=== PATIENT | female | born 1960 | race American Indian/Alaskan Native ===

== ENCOUNTER 2020-11-02 07:16 | Day surgery (SDC) | payer BC ==
[2020-10-30 09:48] LABS: Hematocrit 38.7 % (30.3-42.9); Hemoglobin 12.9 gm/dl (10.1-14.3); Mean Corpuscular HGB Conc 33 % (30-34); Mean Corpuscular Volume 84 fl (79-97); Platelet Count 214 K/mm3 (140-440); Red Cell Distribution Width 14.4 % (13.2-15.2)
[2020-10-30 10:07] LABS: BUN/Creatinine Ratio 14; Blood Urea Nitrogen 11 mg/dL (7-17); Calcium 8.8 mg/dL (8.4-10.2); Hemolysis Index 9
[~2020-11-02 07:16] MED LIST: ACETAMINOPHEN 500 MG TAB PO SCH; GABAPENTIN 300 MG CAP PO NR; LACTATED RINGERS 1,000 ML IV SCH; MIDAZOLAM 2 MG/2 ML INJ IV NR; ceFAZolin/Water 2 GM/20 ML 2 GM/20 ML SYRINGE IV NR
[2020-11-02] MEDS ORDERED: ONDANSETRON 4 MG/2 ML INJ IV PRN (07:42)
[2020-11-02] MEDS ORDERED: HYDROmorphone 1 MG/1 ML INJ IV PRN (07:42)
--- NOTE | 2020-11-02 07:42 | Anesthesia Day of Surgery ---
Anesthesia Day of Surgery - Day of Surgery Patient Examined: Yes Patient H&P Reviewed: Yes Patient is NPO: Yes
--- NOTE | 2020-11-02 07:42 | Anesthesia Consultation ---
Anesthesia Consult and Med Hx Date of service: 11/02/20 - Airway Anesthetic Teeth Evaluation: Good ROM Head & Neck: Adequate Mental/Hyoid Distance: Adequate Mallampati Class: Class III Intubation Access Assessment: Possibly Difficult - Pulmonary Exam CTA: Yes - Cardiac Exam Cardiac Exam: RRR - Pre-Operative Health Status ASA Pre-Surgery Classification: ASA2 Proposed Anesthetic Plan: General - Pulmonary Hx Smoking: No Hx Respiratory Symptoms: No - Cardiovascular System Hx Hypertension: Yes Hx Heart Attack/AMI: No Hx Percutaneous Transluminal Coronary Angioplasty (PTCA): No - Central Nervous System CVA: No - Gastrointestinal Hx Gastroesophageal Reflux Disease: Yes - Endocrine Hx Renal Disease: No Hx Liver Disease: No Hx Non-Insulin Dependent Diabetes: Yes Hx Thyroid Disease: No - Other Systems Hx Obesity: Yes (BMI 32) - Additional Comments Anesthesia Medical History Comments: No hx anesthetic complications.
[2020-11-02] MEDS ORDERED: LIDOCAINE (1%) 10 MG/1 ML VIAL 20 ML MDV ONE ×2 (07:52→10:05)
[2020-11-02] MEDS ORDERED: BACTERIOSTATIC SODIUM CHLORIDE 0.9% 30 ML VIAL INFILTRATI ONE (08:27)
--- NOTE | 2020-11-02 09:20 | Mammography Report ---
MAMMOGRAPHIC GUIDED LEFT BREAST NEEDLE LOCALIZATION, 11/02/2020 CLINICAL INFORMATION / INDICATION: LT BREAST MASS. COMPARISON: 09/03/2020 PROCEDURE: Risks, benefits and indications to the procedure were discussed with the patient. The patient agreed to proceed with both verbal and written consent. A timeout procedure was performed with 2 patient lexy ntifiers. The breast was prepped with betadine in the usual sterile fashion. Approximately 5 cc of Lidocaine 1% was used for local anesthesia. Under direct digital mammographic guidance, a localization wire was p laced in satisfactory position with distal tip traversing the targeted lesion. Post-biopsy mammogram confirms satisfactory positioning of the localization wire. The wire was secured to the skin with a s terile dressing. The patient tolerated procedure without difficulty. No complications were encountered. IMPRESSION: 1. Satisfactory mammographic guided wire localization of the left breast lesion/clip. Signer Name: Geoff Christian Jr, MD Signed: 11/02/2020 9:15 AM Workstation Name: [id number]
[2020-11-02] MEDS ORDERED: LIDOCAINE MPF (2%) 20 MG/1 ML VIAL 5 ML ONE (09:24)
[2020-11-02] MEDS ORDERED: ONDANSETRON 4 MG/2 ML INJ ONE (09:24)
[2020-11-02] MEDS ORDERED: propofoL 200 MG/20 ML VIAL IV ONE (09:24)
[2020-11-02] MEDS ORDERED: KETAMINE/STERILE WATER 50 MG/ML SYRINGE ONE (09:24)
[2020-11-02] MEDS ORDERED: KETOROLAC 30 MG/1 ML INJ ONE (09:24)
[2020-11-02] MEDS ORDERED: dexAMETHasone 20 MG/5 ML VIAL ONE (09:24)
[2020-11-02] MEDS ORDERED: BUPIVACAINE/PF (0.25%) 2.5 MG/ML 30 ML VIAL INFILTRATI ONE ×2 (10:05→11:04)
[2020-11-02] MEDS ORDERED: MAGNESIUM SULFATE 2 GM/50 ML BAG IV ONE (10:07)
[2020-11-02] MEDS ORDERED: SODIUM CHLORIDE P/F VIAL 10 ML 20 ML ONE (10:24)
[2020-11-02] MEDS ORDERED: ePHEDrine SULFATE 50 MG/1 ML INJ ONE (10:29)
[2020-11-02] MEDS ORDERED: LIDOCAINE (1%) 10 MG/1 ML VIAL 20 ML MDV INFILTRATI ONE (11:04)
[2020-11-02] MEDS ORDERED: SODIUM CHLORIDE 0.9% IRR 1,500 ML BOTTLE IR ONE (11:05)
--- NOTE | 2020-11-02 11:33 | Short Stay Summary ---
Short Stay Documentation Date of service: 11/02/20 - History H&P: obtained from office - Allergies and Medications Current Medications: Allergies phenytoin [From Dilantin] Allergy (Verified 10/29/20 14:20) Rash sulfamethoxazole [From Bactrim] Allergy (Verified 10/29/20 14:20) Rash trimethoprim [From Bactrim] Allergy (Verified 10/29/20 14:20) Rash Home Medications Medication Instructions Recorded Confirmed Last Taken Type Lisinopril/Hydrochlorothiazide 1 tab PO QDAY 10/29/20 10/29/20 11/01/20 History [Zestoretic 20-12.5 mg] Metformin HCl [metFORMIN] 1,000 mg PO BID 10/29/20 10/29/20 11/01/20 History oxyCODONE /ACETAMINOPHEN [Percocet 1 tab PO Q6HR PRN #12 tablet 11/02/20 Unknown Rx 5/325] Active Medications Acetaminophen (Acetaminophen 500 Mg Tab) 1,000 mg PO PREOP EDDIE Stop: 11/02/20 23:59 Last Admin: 11/02/20 08:35 Dose: 1,000 mg Documented by: Gabapentin (Gabapentin 300 Mg Cap) 300 mg PO PREOP NR Stop: 11/02/20 23:59 Last Admin: 11/02/20 08:35 Dose: 300 mg Documented by: Hydromorphone HCl (Hydromorphone 1 Mg/1 Ml Inj) 0.5 mg IV Q10MIN PRN PRN Reason: Pain , Severe (7-10) Stop: 11/02/20 23:00 Cefazolin Sodium (Ancef/Sterile Water 2 Gm/20 Ml) 2 gm in 20 mls @ 80 mls/hr IV PREOP NR; Protocol Stop: 11/02/20 23:59 Lactated Ringer's (Lactated Ringers) 1,000 mls @ 100 mls/hr IV DIRECT EDDIE Stop: 11/02/20 23:59 Last Admin: 11/02/20 08:45 Dose: 100 mls/hr Documented by: Midazolam HCl (Midazolam 2 Mg/2 Ml Inj) 2 mg IV PREOP NR Stop: 11/02/20 23:59 Last Admin: 11/02/20 09:05 Dose: 2 mg Documented by: Ondansetron HCl (Ondansetron 4 Mg/2 Ml Inj) 4 mg IV ONCE PRN PRN Reason: Nausea And Vomiting Stop: 11/02/20 12:00 - Brief post op/procedure progress note Date of procedure: 11/02/20 Pre-op diagnosis: Left breast ADH UOQ Post-op diagnosis: same Procedure: Left needle localization excisional biopsy of the upper outer quadrant Anesthesia: GETA Findings: Left wire and clip present within radiograph specimen Surgeon: SOEL DAUGHERTY Estimated blood loss: minimal Pathology: list Specimen disposition: to lab Condition: stable - Disposition Condition at discharge: Good Disposition: DC-01 TO HOME OR SELFCARE Short Stay Discharge Plan Activity: other (no heavy lifting) Diet: regular Wound: keep clean and dry (may shower in 48 hours; no baths; wear breast binder) Follow up with: SOLE DAUGHERTY MD [Staff Physician] - 7 Days Prescriptions: oxyCODONE /ACETAMINOPHEN [Percocet 5/325] 1 tab PO Q6HR PRN #12 tablet PRN Reason: Pain
--- NOTE | 2020-11-02 11:38 | Operative Report ---
Operative Report Operative Report: Operative Report: Date: November 02, 2020 Preoperative diagnosis: Left breast ADH of the upper outer quadrant Postoperative diagnosis: Same Procedure: Left needle localization breast mass excisional biopsy of the upper outer quadrant Surgeon: Jennifer Ramos MD Picker And Packer: Anival Edmondson MD Anesthesia: General Findings: Left wire and clip present within radiograph specimen Complications: None EBL: Minimal (less than 25 cc) Disposition: PACU in good condition Indications for operative procedure: This is a 60 year old lady with recent abnormal screening and diagnostic mammogram with biopsy performed of suspicious microcalcifications with findings of ADH and flat epithelial atypia of the upper central breast. Recommendations are to proceed with left breast excisional biopsy to rule out malignancy. She wished to proceed with the above procedure. Procedure in detail: The patient was taken to radiology for wire placement for localization known area of atypia. Patient was then taken to the operating room. Gen. anesthesia was administered. Left breast and axilla were prepped and draped in the normal sterile operative fashion. The wire was identified around 1:00 position. Timeout was performed. Attention was then taken towards the left breast. A periareolar breast incision was made around the 12:00 position with a 15 blade knife and dissection taken down to subcutaneous tissues. First began raising of the superior flap with removal of the wire from the skin with dissection take down posteriorly past the wire and down posteriorly to the pectoralis muscle, followed by raising of the inferior flap, medial flap and lateral flap with all flaps taken down past the wire and posteriorly towards the pectoralis muscle. The breast area of concern was appropriately removed posteriorly with the aid of the Bovie cautery. The wire was not encountered. Specimen was marked and then sent to pathology and radiology; radiograph specimen with wire and clip present. Breast cavity was irrigated and hemostasis was obtained. The posterior deep breast tissues were approximated and closed using interrupted 3-0 Vicryl. The subcutaneous tissues were approximated and closed using interrupted 3-0 Vicryl followed by closing of the skin with a running 4-0 Monocryl and skin affix. The patient tolerated surgery very well and she was awaken from anesthesia without any complication and transported to PACU in good condition.
--- NOTE | 2020-11-02 12:38 | Mammography Report ---
LEFT BREAST SPECIMEN RADIOGRAPH, 11/02/2020 INDICATION: Left breast target lesion: Left breast mass. COMPARISON: FINDINGS: The previously localized left breast lesion containing a clip is present in its entirety in the submi tted specimen. The localization wire is present. IMPRESSION: 1. Radiographic evidence of satisfactory excision of the target lesion. Signer Name: Geoff Christian Jr, MD Signed: 11/02/2020 12:34 PM Workstation Name: [id number]
--- NOTE | 2020-11-02 13:16 | Post Anesthesia Evaluation ---
- Post Anesthesia Evaluation Patient Participated: Yes Airway Patent: Yes Stable Respiratory Function: Yes Nausea/Vomiting: No Temp > 96.8F: Yes Pain Manageable: Yes Adequeate Hydration: Yes Anesthesia Complications: No
[2020-11-02 16:45] VITALS: BP 120/68
== END 2020-11-02 07:17 | disposition home or self-care (01) ==
LOC: OR 07:16
PROVIDERS: ATTEND Surgery
DX: N63.21 Unspecified lump in the left breast, upper outer quadrant (principal); D24.2 Benign neoplasm of left breast; R92.0 Mammographic microcalcification found on diagnostic imaging of breast; N60.82 Other benign mammary dysplasias of left breast; Z20.822 Contact with and (suspected) exposure to COVID-19; N64.89 Other specified disorders of breast; G43.909 Migraine, unspecified, not intractable, without status migrainosus; I10 Essential (primary) hypertension; K21.9 Gastro-esophageal reflux disease without esophagitis; E66.9 Obesity, unspecified; E11.9 Type 2 diabetes mellitus without complications; D64.9 Anemia, unspecified; Z98.890 Other specified postprocedural states; Z88.8 Allergy status to other drugs, medicaments and biological substances; Z79.899 Other long term (current) drug therapy; Z79.84 Long term (current) use of oral hypoglycemic drugs; Z90.710 Acquired absence of both cervix and uterus; N62 Hypertrophy of breast
CPT/HCPCS: 19125; 19281; 36415; 76098; 80048; 82962; 85027; 88307; A4648; J0690; J1100; J1885; J2250; J2405; J2704; J3475; J3490; J7120; U0003

== ENCOUNTER 2020-12-04 08:24 | Outpatient (CLI) | payer BC ==
--- NOTE | 2020-12-05 08:45 | Magnetic Resonance Report ---
Bilateral breast MR without and with contrast. 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 Comparison: 11/02/2020, 09/03/2020, 07/30/2020. Technique: Multiplanar multisequence MR images of the breast were obtained before and after the intra venous administration of 16 mL of MultiHance contrast. Post processing analysis and review was perfor med on a separate computer workstation. Findings: Breast composition is heterogeneously dense. There is moderate background parenchymal enhancement wit hin both breasts which along with the presence of multiple enhancing foci decreases the sensitivity o f this exam. Additionally, there is significant patient motion on the last postcontrast sequence whic h also limits this exam. LEFT BREAST: Postsurgical changes following recent left superior breast surgical excision are noted. There is a small seroma (2.7 x 1.2 x 2.9 cm) located within the surgical site. Overlying skin thicken ing and enlarged left axillary lymph nodes are present, likely related to recent surgery. Low level e nhancement surrounding the surgical site is consistent with post surgical change. A few scattered enh ancing foci are present throughout the left breast, however these appear to demonstrate low level enh ancement kinetics. Otherwise, no discrete enhancing mass or dominant focus is identified within the l eft breast. RIGHT BREAST: Located within the right central and superior breast are a few scattered enhancing foci . The majority of these appear to demonstrate low level enhancement kinetics. However, there are at l east two which show some degree of type III enhancement kinetics. These include a 4 x 4 x 5 mm round lesion within the right breast at about the 10:00 position, 3 cm from the nipple. Additionally, there is a 7 x 3 x 4 mm oval enhancing lesion within the right breast at the 12:00 position, 3 cm from the nipple. No abnormal right axillary lymph nodes or internal mammary lymph nodes. Impression: There are two enhancing lesions within the right superior breast. These measure up to 7 mm and are lo cated within the right breast at the 10:00 position, 3 cm from the nipple, and 12:00 position, 3 cm f rom the nipple. These are in a background of multiple scattered enhancing foci. These findings are in determinate and a targeted ultrasound is recommended for further evaluation with subsequent ultrasoun d-guided biopsy if a sonographic correlate is identified. If no sonographic correlate is identified, an MRI guided biopsy would be recommended. Postsurgical changes within the left superior breast at site of recent surgical excision with expecte d postoperative changes including small seroma at the surgical site as well as skin thickening and le ft axillary lymph nodes, likely reactive from recent surgery. BIRADS 4: Suspicious abnormality. A normal MRI does not exclude the presence of some forms of breast malignancy as literature reports s uggest that some forms of ductal carcinoma in situ or lobular carcinoma, particularly, may not be det ected on MRI. The sensitivity and specificity of MRI for cancers under 5 mm may be reduced. MRI does not replace the recommendation for annual conventional mammographic evaluation and should be used as an adjunct to mammography and physical examination as necessary. Signer Name: Santos Rondon MD Signed: 12/05/2020 8:40 AM Workstation Name: [id number]
== END 2020-12-04 08:25 | disposition home or self-care (01) ==
LOC: SPVIMAG 08:24
PROVIDERS: ATTEND Surgery
DX: N60.82 Other benign mammary dysplasias of left breast (principal); N64.89 Other specified disorders of breast
CPT/HCPCS: A9575; C8908; 77049

== ENCOUNTER 2021-01-09 14:10 | Outpatient (CLI) | payer BC ==
--- NOTE | 2021-01-09 16:21 | Mammography Report ---
RIGHT DIGITAL DIAGNOSTIC MAMMOGRAM WITH CAD , 01/09/2021 RIGHT LIMITED BREAST ULTRASOUND CLINICAL INFORMATION / INDICATION: The patient has a history of atypical ductal hyperplasia in the le ft breast and has recently undergone surgical excision. Recent breast MRI demonstrated two foci of en hancement in the right breast at the 10 and 12:00 positions. This is a second look evaluation to iden tify a correlate for biopsy. TECHNIQUE: Digital right mammographic imaging was performed. Limited ultrasound was performed. This e xamination was interpreted with the benefit of Computer-Aided Detection (CAD) analysis. COMPARISON: Breast MRI, 12/04/2020. Screening mammogram, 07/30/2020 and 07/05/2019 FINDINGS: Breast Density: The breasts are heterogeneously dense, which may obscure small masses. MAMMOGRAPHIC FINDINGS: No dominant mass, suspicious calcifications, or architectural distortion in th e right breast. ULTRASOUND FINDINGS: Targeted ultrasound evaluation was performed of the area of interest. Sonograp hic evaluation of the superior and upper outer right breast demonstrates no sonographic correlate to the two foci of enhancement seen on the MRI. A 1.3 cm cyst is incidentally noted. IMPRESSION: 1. No mammographic or sonographic correlate is identified to correspond to the foci of enhancement se en on the breast MRI. Although they are low suspicion for malignancy, MRI guided biopsy of one of the se foci is recommended. Follow up recommendation: Biopsy BI-RADS Category 4: Suspicious for Malignancy. A "normal" or negative report should not discourage follow up or biopsy of a clinically significant f inding. A written summary of these findings will be mailed to the patient. The patient will be entered into a mammography reporting system which will generate a reminder letter for the patient's next appointmen t at the appropriate interval. According to the [employer], yearly mammograms are recommended starting at age 40 and continuing as long as a woman is in good health. Breast MRI is recommended for women with an alvina roximately 20-25% or greater lifetime risk of breast cancer, including women with a strong family his tory of breast or ovarian cancer and women who have been treated for Hodgkin's disease. Signer Name: Ailyn Wilson MD Signed: 01/09/2021 4:16 PM Workstation Name: [id number]
== END 2021-01-09 14:11 | disposition home or self-care (01) ==
LOC: SPVWC 14:10
PROVIDERS: ATTEND Surgery
DX: R92.2 Inconclusive mammogram (principal)

== ENCOUNTER 2021-02-12 09:55 | Outpatient (CLI) | payer BC ==
--- NOTE | 2021-02-12 13:24 | Magnetic Resonance Report ---
RIGHT MRI GUIDED BREAST BIOPSY INDICATION: Abnormal enhancement noted in the right breast on recent breast MRI. COMPARISONS: 01/09/2021, 12/04/2020. TECHNIQUE: Informed consent was obtained. The patient was positioned within the MRI scanner with a gr id marker along the right lateral breast. Images were obtained and these confirm the appropriate loca tion of the right breast with respect to the grid. 16 mL of intravenous contrast was administrated an d additional images were acquired. These were reviewed and a focal area enhancement in the right uppe r outer breast at the 10:00 position was identified. This would correspond with the area of enhanceme nt noted on prior breast MRI. We attempted to transmit the MRI images to the separate computerized wo rkstation which is necessary for targeting the lesion. We were unsuccessful in transmitting the image s due to reported "network communication failure." Despite multiple attempts and configurations, we w ere unable to successfully transmit the images and were therefore unable to perform the biopsy. This was discussed with the patient. We have requested evaluation/repair of the computer system. The patie nt will be contacted and rescheduled in the near future for biopsy of the right upper outer breast. IMPRESSION: Right MRI guided biopsy was planned. This was unsuccessful due to computer failure which was unable t o be resolved. This was discussed with the patient. We have put in a request for repair/evaluation of the computer network and the patient will be contacted in the near future for biopsy of the right up per outer breast. Patient should not be charged for today's exam. Signer Name: Santos Rondon MD Signed: 02/12/2021 1:20 PM Workstation Name: [id number]
== END 2021-02-12 09:56 | disposition home or self-care (01) ==
LOC: SPVIMAG 09:55
PROVIDERS: ATTEND Surgery
DX: N63.11 Unspecified lump in the right breast, upper outer quadrant (principal); R92.8 Other abnormal and inconclusive findings on diagnostic imaging of breast; G43.909 Migraine, unspecified, not intractable, without status migrainosus; K21.9 Gastro-esophageal reflux disease without esophagitis; E66.9 Obesity, unspecified; E11.9 Type 2 diabetes mellitus without complications; Z98.890 Other specified postprocedural states; Z88.8 Allergy status to other drugs, medicaments and biological substances; Z79.899 Other long term (current) drug therapy; Z79.84 Long term (current) use of oral hypoglycemic drugs; Z90.710 Acquired absence of both cervix and uterus; Z86.2 Personal history of diseases of the blood and blood-forming organs and certain disorders involving the immune mechanism
CPT/HCPCS: 19085; A4648; A9575

== ENCOUNTER 2021-03-05 08:12 | Outpatient (CLI) | payer BC ==
--- NOTE | 2021-03-05 10:26 | Mammography Report ---
RIGHT DIAGNOSTIC MAMMOGRAM INDICATION: Status post right breast MRI guided biopsy. COMPARISON: 12/04/2020. FINDINGS: Right breast CC and LM projection mammograms were obtained. These document a biopsy marker in the right upper outer breast at the 10:00 position. This armando the site of an MRI guided biopsy. T he biopsy marker is felt to be slightly lateral (11 mm) from the biopsy site. IMPRESSION: Mammographic images documenting location of biopsy marker located slightly lateral (11 mm) to the nawaf pected site of recent MRI guided biopsy in the right breast at the 10:00 position. BI-RADS Category 4: Suspicious for Malignancy. Signer Name: Santos Rondon MD Signed: 03/05/2021 10:21 AM Workstation Name: [id number]
--- NOTE | 2021-03-05 11:37 | Magnetic Resonance Report ---
MRI-GUIDED RIGHT BREAST BIOPSY WITH MARKER PLACEMENT HISTORY: Abnormal enhancement noted in the right breast at the 10:00 position on prior MRI COMPARISON: MRI 12/04/2020. PROCEDURE: Informed consent was obtained. The patient was placed in the prone position on the MRI table. The rig ht breast was placed in compression with a grid localization device along its lateral aspect. A pre c ontrast sagittal sequence was performed for fiducial localization. Following the uneventful intraveno us administration of 17 mL of intravenous contrast agent, an axial dynamic sequence was performed for localization of the enhancing target. The focal area of enhancement within the right breast at the 1 0:00 position was identified. The appropriate coordinates for biopsy targeting were calculated using separate computer station. The overlying skin was cleansed with Betadine. The skin and superficial soft tissues were anesthetiz ed with a small amount of buffered 1% Lidocaine. The deeper soft tissues were anesthetized with buf fered 1% Lidocaine with epinephrine. The 9 gauge Atec biopsy stylet and obturator were advanced to the appropriate depth. An axial sequenc e was performed to confirm appropriate biopsy needle trajectory. The stylet was removed and replaced with the biopsy device. Using vacuum assistance, 10 core specimen samples were acquired to submit to surgical pathology for analysis. Axial sequences were obtained documenting biopsy changes at the targ eted site. A Sec[employer] biopsy marker was deposited at the biopsy site. Manual pressure was applied at the biopsy site to achieve hemostasis. The incision margins were appro ximated with Steri-Strips. A post procedure right breast mammogram was acquired. Post procedure care instructions were administered in both verbal and written forms. The patient voic ed understanding and left the breast center in stable, satisfactory condition. IMPRESSION: Technically successful MRI guided biopsy of the right breast at the 10:00 position with placement of a biopsy marker. An addendum will be added to this report once pathology results are available. Signer Name: Santos Rondon MD Signed: 03/05/2021 11:32 AM Workstation Name: [id number]
== END 2021-03-05 08:13 | disposition home or self-care (01) ==
LOC: SPVIMAG 08:12
PROVIDERS: ATTEND Surgery
DX: R92.8 Other abnormal and inconclusive findings on diagnostic imaging of breast (principal); N63.11 Unspecified lump in the right breast, upper outer quadrant; D24.1 Benign neoplasm of right breast; N62 Hypertrophy of breast; N60.81 Other benign mammary dysplasias of right breast; N64.89 Other specified disorders of breast; G43.909 Migraine, unspecified, not intractable, without status migrainosus; I10 Essential (primary) hypertension; K21.9 Gastro-esophageal reflux disease without esophagitis; E66.9 Obesity, unspecified; E11.9 Type 2 diabetes mellitus without complications; Z90.710 Acquired absence of both cervix and uterus; Z79.899 Other long term (current) drug therapy; Z88.8 Allergy status to other drugs, medicaments and biological substances; Z98.890 Other specified postprocedural states; Z86.2 Personal history of diseases of the blood and blood-forming organs and certain disorders involving the immune mechanism
CPT/HCPCS: 19085; 77065; 88305; 88341; 88342; A4648; A9575